=== PATIENT | female | born 1960 | race Caucasian/White ===

== ENCOUNTER 2021-12-25 12:55 | Emergency (ER) | payer BC, SELFPAY ==
[2021-12-25 13:03] VITALS: BP 124/66; PULSE 73; RESP 18; TEMP 36.8; O2SAT 98
--- NOTE | 2021-12-25 13:34 | DI.RAD_ITS ---
Exam(s) XR HAND RT COMPLETE EXAM: XR HAND RT COMPLETE CLINICAL HISTORY: Fall with distal ulna pain. TECHNIQUE: 2D digital imaging was performed. COMPARISON: No exams were available for comparison FINDINGS: There are fractures of distal radius and ulna. No prominent displacement. No carpal dislocation. N o other carpal row bone fractures. Also no fractures in the bones of the hand. No radiopaque foreig n body. No osseous lesions. IMPRESSION: Distal radius and ulnar styloid fractures. No hand fractures evident. DATA REPOSITORY: RADIATION DOSE DELIVERED:
--- NOTE | 2021-12-25 13:34 | DI.RAD_ITS ---
Exam(s) XR FOREARM RT EXAM: XR FOREARM RT CLINICAL HISTORY: Fall with distal ulna pain. TECHNIQUE: 2D digital imaging was performed. COMPARISON: No exams were available for comparison FINDINGS: 3 views Distal radius fracture. Mildly impacted. Fracture ulnar styloid. There are no fractures evident mo re proximally in the forearm bones. IMPRESSION: DATA REPOSITORY: RADIATION DOSE DELIVERED:
--- NOTE | 2021-12-25 13:34 | DI.RAD_ITS ---
Exam(s) XR WRIST RT COMPLETE EXAM: XR WRIST RT COMPLETE CLINICAL HISTORY: Fall with distal ulna pain. TECHNIQUE: 2D digital imaging was performed. COMPARISON: No exams were available for comparison FINDINGS: 3 views There is a mildly impacted fracture the distal radius. Also fracture of the ulnar styloid. No carpa l dislocation. Scaphoid intact. IMPRESSION: Distal radius fracture. DATA REPOSITORY: RADIATION DOSE DELIVERED:
[2021-12-25] MEDS: Ibuprofen 600 MG TAB PO (14:08)
--- NOTE | 2021-12-25 15:17 | OCONE_ITS ---
Assessment and Plan Assessment and plan (1) Closed fracture of right distal radius and ulna: Status: Acute Assessment and plan: 61-year-old female with displaced right distal radius and ulna fractures Status post mechanical fall FOOSH mechanism right wrist deformity and pain earlier today. No pre-existing wrist problems. Possible wrist fracture as a child on the side that healed well. Denies any significant numbness or tingling. No carpal tunnel symptoms. Transient ulnar-sided numbness has resolved. No other injuries. [id number]. Works as a auto parts delivery driver. Denies any significant medical problems. NKDA. Review of systems negative. Right wrist with obvious moderate dorsal deformity and edema. Skin intact. Demonstrate intact motor AIN, PIN, ulnar nerves. Intact tendon flexion- extension including EPL. Sensation intact light touch throughout without any significant paresthesias or numbness. 2+ right radial pulse. X-rays show about 25 degree dorsally angulated distal radius fracture that has an extra-articular and intra-articular radial styloid fragment. The ulnar styloid and distal ulna fractures are relatively nondisplaced Discussed thoroughly with patient and her daughter. Decision to proceed with closed reduction under hematoma block anesthesia today. Plaster sugar-tong splint applied. The risks, benefits, and alternatives were thoroughly discussed. Patient was counseled regarding pain management, expected postoperative course, and recovery timeline. The patient tolerated the procedure well. Post reduction x-rays showed excellent reduction and alignment of distal radius fracture. Recommend elevation to minimize swelling and discomfort. Encourage range of motion all fingers and thumb prevent stiffness. May loosen or adjust Daren wrap as needed for comfort. Keep splint clean and dry until follow-up. My office will call on Tuesday with a follow-up appoint with me in 10?14 days. We discussed the potential risk of re? displacement or intra-articular step-off requiring future surgical intervention. All questions were answered. Patient and daughter agree and understand treatment plan. She may drive when comfortable, safe, and confident with her right hand in splint and probably more easily in the next cast or fracture brace in 2 weeks. [facility] All Active Problems (Updated 12/25/21 @ 15:50 by Chris Alan MD) Closed fracture of right distal radius and ulna (Acute 12/25/21) Social History Smoking/Tobacco Use Status: Current every day Tobacco Type: cigarettes Smoking risk assessment performed?: Yes Alcohol Intake: current Alcohol Intake frequency: holidays/special occasions only Drug use: Never Substance use type: does not use Do you feel safe at home: Yes Do you feel safe in your relationship?: Yes Results Last Vital Signs Temp 98.2 F 12/25/21 13:03 Pulse 73 12/25/21 13:03 Resp 18 12/25/21 13:03 BP 124/66 12/25/21 13:03 Pulse Ox 98 12/25/21 13:03 Procedures Orthopedic Fracture Reduction Fracture #1: Time out performed: Yes (Informed assent obtained from patient in presence of daughter) Side: right Fracture reduction location: radius (distal radius) Analgesia: hematoma block (10 cc 1% plain lidocaine) Technique: direct manipulation Post-reduction x-rays demonstrate: anatomical reduction Post-reduction neuro exam: intact Post-reduction vascular exam: intact Splint applied: Yes (Plaster sugar-tong splint) Additional comments: CPT #10786
[2021-12-25] MEDS: Lidocaine 2% Multi-Dose 50 ML VIAL (15:21)
--- NOTE | 2021-12-25 15:23 | W.ED.GENAD ---
Discharge Plan Disposition Patient Disposition: Home Condition: Stable Discharge Details Clinical Impression: Closed fracture distal radius and ulna Primary Care Provider: Ana Reynolds ED Provider: Akira Grimm Home Meds and New Rx's Prescriptions: No Action lithium carbonate 450 mg tablet extended release 1 tab PO DAILY citalopram 20 mg tablet 1 tab PO DAILY Discharge Instructions Instructions: Wrist Fracture in Adults (ED) Additional Instructions: If you develop any severe pain, numbness or tingling to your fingers, change in color, or further concerns feel free to return the emergency department for emergent reassessment otherwise follow-up with orthopedic office You may continue to take [id number] acetaminophen or ibuprofen as discussed. Referrals: Chris Alan MD [ [facility] STAFF PHYSICIAN] - (As recommended by orthopedist) Discharge Data Discharge Date/Time-TO BE ENTERED AT DEPARTURE: 12/25/21 18:35 Medical Decision Making Patient presenting the emergency department for chief complaint of fall on outstretched hand earlier this morning. Patient denies any other injury or trauma. Patient has significant pain to palpation of the distal radius and ulna with slight dorsal deformity that is very subtle. Patient is stating some discomfort in the hand as well but no palpable tenderness is noted no deformity. We will plan on doing radiological imaging for evaluation of acute fracture. Patient requesting ibuprofen pending results. Review of radiological imaging and radiologist interpretation shows minimally displaced impacted distal radius fracture with subtle distal ulnar fracture. Initially Ortho-Glass was placed in the emergency department but was able to speak with orthopedic surgeon who came down to the emergency department to perform hematoma block and more appropriate reduction of fracture. Please see orthopedic note for further care of patient's fracture. Patient was offered narcotic pain control but she stated she would prefer just to take [id number] medications as these typically are sufficient for her.. Will discharge with follow-up with Ortho as recommended. After discussion of diagnosis and plan of care patient has no further needs, questions, or concerns and states clear understanding to return to the emergency department for any worsening symptoms. Sign Out No HPI General Mode of arrival: ambulatory. Date/Time Provider Initiated Documentation: 12/25/21 13:11. Limitations to Documentation: no limitations. Information obtained by: patient and RN notes reviewed. History of Present Illness 61 year old F presents to the emergency department with the chief complaint of fall with right wrist injury, described as moderate, with intensity rated at 6. Quality is described as aching and sharp, and is localized to the right and upper extremity. Patient reports no radiation. Patient started experiencing this hour(s) (4) and it has been constant. Immobilization improves symptom(s), Movement worsens symptoms . Patient notes no other symptoms.. Patient did receive the following treatments prior to arrival, none Related Data Home Medications Medication Instructions Recorded Confirmed citalopram 20 mg tablet 1 tab PO DAILY 12/25/21 12/25/21 lithium carbonate 450 mg 1 tab PO DAILY 12/25/21 12/25/21 tablet,extended release Allergies Allergy/AdvReac Type Severity Reaction Status Date / Time No Known Allergies Allergy Unverified 12/25/21 13:06 General Stated Complaint: Orthopedic GRIFFIN: 4 Review of Systems Narrative: 8 systems reviewed and unremarkable except what is marked below. Musculoskeletal Musculoskeletal: Reports as per HPI, Reports deformity, Reports arthralgias, Reports joint swelling, Reports limited range of motion, Denies numbness and Denies tingling Integumentary/Breasts Skin/Breast: Denies wounds Neurologic Neurologic: Denies numbness and Denies tingling PFSH All Active Problems (Updated 12/25/21 @ 15:50 by Chris Alan MD) Closed fracture of right distal radius and ulna (Acute 12/25/21) Social History Smoking/Tobacco Use Status: Current every day Tobacco Type: cigarettes Smoking risk assessment performed?: Yes Alcohol Intake: current Alcohol Intake frequency: holidays/special occasions only Drug use: Never Substance use type: does not use Do you feel safe at home: Yes Do you feel safe in your relationship?: Yes Exam Const General: cooperative, no acute distress and not ill appearing Orientation: alert, awake and oriented x3 Resp Effort & Inspection: normal respiratory effort, able to speak in complete sentences and no respiratory distress Cardio Rate: regular rate Rhythm: regular rhythm Skin General skin exam: no rashes or lesions noted Neuro General: patient alert, patient awake, patient oriented x3, moves all extremities and no focal motor deficits Sensory Exam: no sensory deficits noted Extrem Right upper extremity: elbow/forearm Details: normal ROM; no tenderness, wrist Details: tenderness Location: of the distal radius and of the distal ulna; not of the anatomic snuffbox, swelling Location: of the dorsal wrist, abnormal ROM (Pain with any attempts of movement of the wrist), normal vascular exam and radial pulse present; no lacerations and no ecchymosis and hand Details: normal to inspection, neuromotor exam normal, neurosensory exam normal, tendon exam normal and normal ROM of fingers; no tenderness and no ecchymosis Course Vital Signs Vital signs: Vital Signs Temperature 36.8 C 12/25/21 13:03 Pulse 73 12/25/21 13:03 Respiratory Rate 18 12/25/21 13:03 Blood Pressure 124/66 12/25/21 13:03 Pulse Oximetry 98 12/25/21 13:03 Temperature 36.8 C 12/25/21 13:03 Temperature Source Temporal Artery Scan 12/25/21 13:03 Pulse 73 12/25/21 13:03 Respiratory Rate 18 12/25/21 13:03 Respiratory Effort Non-Labored 12/25/21 13:07 Blood Pressure 124/66 12/25/21 13:03 Blood Pressure Position Sitting 12/25/21 13:03 Pulse Oximetry 98 12/25/21 13:03 Oxygen Delivery Method Room Air 12/25/21 13:03 Oxygen Flow Rate 0 12/25/21 13:03 Pain Level 4 12/25/21 14:49
--- NOTE | 2021-12-25 15:30 | DI.RAD_ITS ---
Exam(s) XR WRIST RT LIMITED EXAM: XR WRIST RT LIMITED CLINICAL HISTORY: Postreduction -distal radius and ulnar fracture. TECHNIQUE: 2D digital imaging was performed. COMPARISON: Prior same date FINDINGS: In cast post reduction images reveal satisfactory position alignment of the radius fracture fragments when compared to pre reduction images. IMPRESSION: Improved alignment. DATA REPOSITORY: RADIATION DOSE DELIVERED:
[2021-12-25 16:10] VITALS: BP 118/72; PULSE 75; RESP 18; TEMP 36.7; O2SAT 97
== END 2021-12-25 18:35 | disposition home or self-care (01) ==
PROVIDERS: Emergency Provider Nurse Practitioner Family; PCP Internal Medicine
DX: S52.501A Unspecified fracture of the lower end of right radius, initial encounter for closed fracture (principal); S52.601A Unspecified fracture of lower end of right ulna, initial encounter for closed fracture; W19.XXXA Unspecified fall, initial encounter
CPT/HCPCS: 99284; 25605; 73090; 73100; 73110; 73130; 99283

== ENCOUNTER 2022-01-05 13:09 | Outpatient (CLI) | payer BC, SELFPAY ==
--- NOTE | 2022-01-05 13:00 | DI.RAD_ITS ---
Exam(s) XR WRIST RT LIMITED EXAM: XR WRIST RT LIMITED CLINICAL HISTORY: Right wrist f/u. TECHNIQUE: 2D digital imaging was performed of the right wrist. Two views were obtained. PA and la teral views were obtained. COMPARISON: CR XR WRIST RT LIMITED from 12/25/2021 FINDINGS: The cast has been removed. BONES: There is no change in the alignment of the nondisplaced ulnar styloid process fracture. There is a stable fracture involving the distal metaphysis of the right radius. No bony destructive lesio n is seen. JOINTS: The carpal bones are normally aligned. SOFT TISSUE: Normal. IMPRESSION: Stable distal radial and ulnar fractures as described. DATA REPOSITORY: RADIATION DOSE DELIVERED:
== END 2022-01-05 13:10 | disposition home or self-care (01) ==
LOC: DIORS 13:10
PROVIDERS: PCP Internal Medicine; Referring Provider Internal Medicine; Visit Provider Student in an Organized Health Care Education/Training Program
DX: S52.501D Unspecified fracture of the lower end of right radius, subsequent encounter for closed fracture with routine healing (principal); S52.601D Unspecified fracture of lower end of right ulna, subsequent encounter for closed fracture with routine healing; X58.XXXD Exposure to other specified factors, subsequent encounter
CPT/HCPCS: 73100

== ENCOUNTER 2022-01-19 15:09 | Outpatient (CLI) | payer BC, SELFPAY ==
--- NOTE | 2022-01-19 15:00 | DI.RAD_ITS ---
Exam(s) XR WRIST RT LIMITED EXAM: XR WRIST RT LIMITED CLINICAL HISTORY: RIGHT DISTAL RADIUS AND ULNA FX F/U. TECHNIQUE: 2D digital imaging was performed of the right wrist. Two views were obtained. PA and la teral views were obtained. COMPARISON: Comparison is made with prior examinations. FINDINGS: BONES: There has been no change in alignment of the distal radial fracture. There has been no change in alignment of the mildly displaced ulnar styloid process fracture. No new fracture is identified. No bony destructive lesion is seen. JOINTS: The carpal bones are normally aligned. SOFT TISSUE: Normal. IMPRESSION: Stable distal radial and ulnar fractures. DATA REPOSITORY: RADIATION DOSE DELIVERED:
== END 2022-01-19 15:10 | disposition home or self-care (01) ==
LOC: DIORS 15:09
PROVIDERS: PCP Internal Medicine; Referring Provider Internal Medicine; Visit Provider Student in an Organized Health Care Education/Training Program
DX: S52.591D Other fractures of lower end of right radius, subsequent encounter for closed fracture with routine healing; S52.611D Displaced fracture of right ulna styloid process, subsequent encounter for closed fracture with routine healing; X58.XXXD Exposure to other specified factors, subsequent encounter
CPT/HCPCS: 73100

== ENCOUNTER 2022-02-16 15:27 | Outpatient (CLI) | payer BC, SELFPAY ==
--- NOTE | 2022-02-16 14:45 | DI.RAD_ITS ---
Exam(s) XR WRIST RT LIMITED EXAM: XR WRIST RT LIMITED CLINICAL HISTORY: right distal radius fx f/u. TECHNIQUE: 2D digital imaging was performed of the right wrist. Two views were obtained. PA and la teral views were obtained. COMPARISON: CR XR WRIST RT LIMITED from 01/19/2022 FINDINGS: BONES: There has been no change in alignment of the distal radial fracture. There is increased scler osis of the fracture suggesting some interval healing. No new fractures identified. There has been no change in the ulnar styloid process fracture. No bony destructive lesion is seen. JOINTS: The carpal bones are normally aligned. SOFT TISSUE: Normal. IMPRESSION: Healing distal right radial fracture. DATA REPOSITORY: RADIATION DOSE DELIVERED:
== END 2022-02-16 15:28 | disposition home or self-care (01) ==
LOC: DIORS 15:28
PROVIDERS: PCP Internal Medicine; Referring Provider Internal Medicine; Visit Provider Student in an Organized Health Care Education/Training Program
DX: S52.501D Unspecified fracture of the lower end of right radius, subsequent encounter for closed fracture with routine healing (principal); S52.601D Unspecified fracture of lower end of right ulna, subsequent encounter for closed fracture with routine healing; X58.XXXD Exposure to other specified factors, subsequent encounter
CPT/HCPCS: 73100

== ENCOUNTER 2022-03-30 14:52 | Outpatient (CLI) | payer BC, SELFPAY ==
--- NOTE | 2022-03-30 14:15 | DI.RAD_ITS ---
Exam(s) XR WRIST RT LIMITED EXAM: XR WRIST RT LIMITED CLINICAL HISTORY: distal radius and ulna fx f/u. TECHNIQUE: 2D digital imaging was performed of the right wrist. Two views were obtained. PA and la teral views were obtained. COMPARISON: CR XR WRIST RT LIMITED from 02/16/2022 FINDINGS: BONES: There has been continued healing of the distal right radial fracture. A small component of th e fracture line is still visualized. No new fracture is seen. No bony destructive lesion is seen. T he bones are osteopenic. JOINTS: There is widening of the scapholunate distance and ligamentous injury cannot be excluded. SOFT TISSUE: Normal. IMPRESSION: Healing distal right radial fracture. DATA REPOSITORY: RADIATION DOSE DELIVERED:
== END 2022-03-30 14:53 | disposition home or self-care (01) ==
LOC: DIORS 14:52
PROVIDERS: PCP Internal Medicine; Referring Provider Internal Medicine; Visit Provider Student in an Organized Health Care Education/Training Program
DX: S52.501D Unspecified fracture of the lower end of right radius, subsequent encounter for closed fracture with routine healing (principal); S52.601D Unspecified fracture of lower end of right ulna, subsequent encounter for closed fracture with routine healing; X58.XXXD Exposure to other specified factors, subsequent encounter
CPT/HCPCS: 73100